=== PATIENT | female | born 1955 | race Caucasian/White ===

== ENCOUNTER 2023-12-16 14:39 | Outpatient (RCR) | payer MEDICARE, SELFPAY ==
--- NOTE | 2023-12-18 10:35 | BUOTOPEVAL ---
Assessment and note entered by Sandi Vargas OT Evaluation Information Assessment Status Evaluation Diagnosis Closed fracture of distal end of left radius Other ICD-10 Condition Codes ( S52.502D OT) Onset September 2023 Subjective Information The patient reports 9/10 pain when its at its worst and 4/10 pain at best. She reports there is pain in posterior forearm that will go to her fingers but does not feel like sharp shooting pain . She reports pain as hard aching. She reports that when she is driving she has aching in fingers and distal to elbow. She reports pain during ulnar deviation and supination. She reports she wears her brace still and will also use PERLA wrap to help provide support to wrist. Reported Pain Level Pain Score 4: Self Report Assessment OT Clinical Summary The patient is a 68 year old female who was referred to outpatient OT due to distal radius fracture of L UE. The patient demonstrates limited wrist AROM, limited chief inspector strength, and maximal pain in L wrist. The patient reports that there is pain in distal forearm and into hand. The patient requires skilled OT to address wrist ROM, gradual strengthening, and pain in order to return to independence with ADLs and IADLs without discomfort. Plan of Care Interventions Therapeutic Exercise,Manual Therapy,Neuro Re- education,Therapeutic Activities,Hot Pack/Cold Pack,Electrical Stimulation,Sensory Integrative Techn,Self-Care/Home Management,Prosthetic Training,Ultrasound OT Services Indicated Yes Treatment Frequency and 2x/week for 10 visits. Duration These treatments will address the objective and functional deficits as defined above. The patient will be advanced safely and appropriately in order for the patient to progress towards his/her prior level of function. Additional exercises will be introduced and as well as a comprehensive home exercise program upon discharge, if needed, ?to ensure carryover of functional gains achieved in the clinic. This treatment plan has been reviewed and agreement upon by the patient.
--- NOTE | 2024-01-13 13:52 | OTOPPROG ---
Assessment and note entered by Sandi Vargas OT Evaluation Information Assessment Status Progress Subjective Information The patient reports that her wrist is sore after crafting this weekend. She reports that most of the time she has aching pain but sometimes will still shoot up to 8/10 at its worst. The patient will have pain as low as 0/10 when at rest. The patient reports that she can do more without pain than in the beginning. Assessment OT Clinical Summary The patient demonstrates significant progress in pain symptoms and ROM. She continues to demonstrate difficulty with lifting dinner plates and crafting like fine motor tasks. She is able to ring out a towel without pain and is able to hold puzzle books without pain. The patient demonstrates minimal weakness in space and storage clerk strength and continues to demonstrate pain in wrist following continuous work. The patient requires continued OT at this time to address wrist pain and implement other modalities to improve symptoms. Therapist to engage patient in wrist stability and gripping exercises due to pain with space and storage clerk and turning of wrist. The patient demonstrates good potential for improvement. Plan of Care Interventions Therapeutic Exercise,Manual Therapy,Neuro Re- education,Therapeutic Activities,Hot Pack/Cold Pack,Electrical Stimulation,Sensory Integrative Techn,Self-Care/Home Management,Prosthetic Training,Ultrasound OT Services Indicated Yes Treatment Frequency and 2x/week for 10 visits. Duration These treatments will address the objective and functional deficits as defined above. The patient will be advanced safely and appropriately in order for the patient to progress towards his/her prior level of function. Additional exercises will be introduced and as well as a comprehensive home exercise program upon discharge, if needed, ?to ensure carryover of functional gains achieved in the clinic. This treatment plan has been reviewed and agreement upon by the patient.
== END 2024-03-15 23:59 | disposition home or self-care (01) ==
LOC: CHSOT 14:39
DX: S52.502D Unspecified fracture of the lower end of left radius, subsequent encounter for closed fracture with routine healing (principal)
CPT/HCPCS: 97014; 97035; 97110; 97140; 97166; 97530; G0283

== ENCOUNTER 2024-06-26 12:50 | Outpatient (RCR) | payer MEDICARE, SELFPAY ==
--- NOTE | 2024-06-26 16:02 | OTOPEVAL1 ---
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 The patient previously demonstrated WNL wrist strength, ROM and pinch strength. She now demonstrates minimally impaired wrist ROM, strength and pinch strength which could lead to decreased independence with ADLs in the future. The patient requires skilled OT to address wrist mobility, strength and overall use of L UE in order to return to PLOF. Plan of Care Interventions Therapeutic Exercise,Manual Therapy,Neuro Re- education,Therapeutic Activities,Electrical Stimulation,Sensory Integrative Techniques,Self- Care/Home Management,Prosthetic Training, Ultrasound OT Services Indicated Yes Treatment Frequency and 2x/week for 8 visits. Duration These treatments will address the objective and functional deficits as defined above. The patient will be advanced safely and appropriately in order for the patient to progress towards his/her prior level of function. Additional exercises will be introduced and as well as a comprehensive home exercise program upon discharge, if needed, ?to ensure carryover of functional gains achieved in the clinic. This treatment plan has been reviewed and agreement upon by the patient.
--- NOTE | 2024-06-26 16:03 | OPREHPOC ---
Outpatient Therapy Plan of Care This is a Multidisciplinary Plan of Care that may contain components documented by all disciplines (PT, OT, and ST.) OT Problem 1 OT Problem #1 Knowledge Deficit OT Goal 1 Goal / Goal Update The patient will demonstrate 100% knowledge and return demonstration for UE HEP in order to improve strength and endurance for long-term use of L UE. Target Visit 8 OT Problem 2 OT Problem #2 Impaired Strength OT Goal 1 Goal / Goal Update The patient will demonstrate increased wrist flexion/extension with 5/5 muscle strength of L wrist in order to perform activities without discomfort and assistance. Target Visit 8 OT Goal 2 Goal / Goal Update The patient will demonstrate >10 lbs of lateral pinch strength of L hand in order to open containers. Target Visit 8 OT Goal 1 Goal / Goal Update The patient will demonstrate >40 degrees L wrist flexion and >60 degrees L wrist extension in order to increase mobility of wrist for grooming tasks. L wrist flexion: 33 degrees L wrist extension: 59 degrees R wrist flexion: 45 degrees R wrist extension: 64 degrees Target Visit 8
--- NOTE | 2024-07-17 14:29 | OTOPPROG ---
Assessment and note entered by Sandi Vargas OT Evaluation Information Assessment Status Progress Assessment OT Clinical Summary The patient demonstrates significant progress in L wrist AROM, strength, and pinch strength leading to full independence with all ADLs and IADLs. The patient demonstrates good progress toward goals with good engagement in HEP and following MD orders. The patient is able to perform all ADLs and IADLs with no issues or concerns. The patient demonstrates minimal sensation issues with tingling on posterior forearm which has been discussed with MD previously. The patient to return to MD for follow up, OT progress demonstrates good tolerance with goals and is prepared for discharge. Therapist educated patient to continue HEP. Plan of Care Interventions Therapeutic Exercise,Manual Therapy,Therapeutic Activities,Self-Care/Home Management,Ultrasound OT Services Indicated Yes Treatment Frequency and 1x/week 10 visits. Duration These treatments will address the objective and functional deficits as defined above. The patient will be advanced safely and appropriately in order for the patient to progress towards his/her prior level of function. Additional exercises will be introduced and as well as a comprehensive home exercise program upon discharge, if needed, ?to ensure carryover of functional gains achieved in the clinic. This treatment plan has been reviewed and agreement upon by the patient.
--- NOTE | 2024-07-17 14:30 | OPREHPOC ---
Outpatient Therapy Plan of Care This is a Multidisciplinary Plan of Care that may contain components documented by all disciplines (PT, OT, and ST.) OT Problem 1 OT Problem #1 Knowledge Deficit OT Goal 1 Goal / Goal Update The patient will demonstrate 100% knowledge and return demonstration for UE HEP in order to improve strength and endurance for long-term use of L UE. GOAL MET; DISCONTINUE Target Visit 8 OT Problem 2 OT Problem #2 Impaired Strength OT Goal 1 Goal / Goal Update The patient will demonstrate increased wrist flexion/extension with 5/5 muscle strength of L wrist in order to perform activities without discomfort and assistance. 4+/5 GOAL PARTIALLY MET Target Visit 8 OT Goal 2 Goal / Goal Update The patient will demonstrate >10 lbs of lateral pinch strength of L hand in order to open containers. GOAL MET; DISCONTINUED 12 lbs Target Visit 8 OT Goal 1 Goal / Goal Update The patient will demonstrate >40 degrees L wrist flexion and >60 degrees L wrist extension in order to increase mobility of wrist for grooming tasks. GOAL MET; DISCONTINUED L wrist flexion: 44 degrees L wrist extension: 68 degrees R wrist flexion: 45 degrees R wrist extension: 64 degrees Target Visit 8
--- NOTE | 2024-08-25 12:49 | BUOTOPDC ---
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 After follow up with MD, the patient no longer requires skilled OT and is cleared by MD. She demonstrates understanding of HEP from last appointment and has made good progress toward goals. Patient is discharged at this time. Plan of Care OT Services Indicated No
== END 2024-07-17 20:00 | disposition home or self-care (01) ==
LOC: CHSOT 12:50
DX: S52.612K Displaced fracture of left ulna styloid process, subsequent encounter for closed fracture with nonunion (principal)
CPT/HCPCS: 97110; 97140; 97165; 97530